=== PATIENT | male | born 1955 | race Caucasian/White ===

== ENCOUNTER 2023-10-05 05:50 | Day surgery (SDC) | payer MEDICARE, OTHER ==
[2023-10-01 14:10] VITALS: BP 123/74
[~2023-10-05] VITALS: Ht 188 cm; Wt 111.4 kg
[~2023-10-05 05:50] MED LIST: BAYER CHEWABLE81 MG PO; FISH OIL 1,2001 EACH PO; MIDAZOLAM HCL 5 MG/5 ML VIAL IV PRN; OMEPRAZOLE20 MG PO; VITAMIN C500 M1 PO; fentaNYL citrate 100 MCG/2 ML VIAL IV PRN
[2023-10-05 06:02] VITALS: BP 131/79
[2023-10-05] MEDS ORDERED: LACTATED RINGER'S 1,000 ML IV SCH (07:00)
[2023-10-05] MEDS ORDERED: LIDOCAINE HCL 1% 5 ML SDV INJ ONE (07:00)
[2023-10-05] MEDS ORDERED: IBLOOD GLUCOSE TEST STRIP 1 EA TEST VI PRN (07:00)
[2023-10-05] MEDS ORDERED: propofoL 200 MG/20 ML VIAL ONE ×2 (07:02→07:51)
[2023-10-05] MEDS ORDERED: LIDOCAINE HCL 2% 5 ML SDV ONE (07:02)
--- NOTE | 2023-10-05 07:57 | NUR ---
PT GONE FOR PROCEDURE. PROVIDED PRAYER.
--- NOTE | 2023-10-05 08:09 | NUR ---
10/05/23 0809 Charlene Brady 0801- PT ARRIVES TO PACU NONAROUSABLE TO STIMULI. RESP EVEN AND UNLABORED. OXYGEN SAT HIGH 90'S ON 2L VIA CO2 NC. PT'S HEART RATE IN THE 40'S TO 50'S IN A SINUS RHYTHM. 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 0807- PT AROUSABLE TO STIMULI. PT UPDATED THAT HIS PROCEDURE IS COMPLETE. PT FALLS BACK TO SLEEP. RESP EVEN AND UNLABORED.
[2023-10-05 08:28] VITALS: BP 129/82
--- NOTE | 2023-10-05 09:05 | OR ---
[facility] [address], [place] [address] Signed DATE OF OPERATION: 10/05/2023 SURGEON: Aurelia Alberto MD PREOPERATIVE DIAGNOSES: 1. Chronic constipation. 2. Intermittent rectal bleeding. 3. Questionable history of colon cancer in maternal grandmother. POSTOPERATIVE DIAGNOSES: 1. Minimal to moderate sigmoid diverticulosis. 2. Minimal to moderate internal hemorrhoids. PROCEDURE: Colonoscopy without biopsy. ESTIMATED BLOOD LOSS: None. INDICATIONS: Juan is a 67-year-old gentleman, asked to see me for a colonoscopy. He describes lifelong constipation. He frequently takes laxatives. He said milk of magnesia seems to work well. He sometimes has intermittent rectal bleeding associated with the constipation. His primary care provider asked him to use a little MiraLAX every day to keep his stool soft. He underwent a colonoscopy in 2008 at the age of 52 [address] Vance while living in [place], [place]. He said that was negative. He thinks it is possible his maternal grandmother had colon cancer, but he is not sure. In the office, I had given him a pamphlet on colonoscopy. We reviewed the nature of the test. There is risk including, but not limited to gas bloating, crampy abdominal pain, bleeding, perforation requiring surgery, and missed diagnosis. We also reviewed the written instructions for a bowel prep line by line. We had him take the bowel prep in the morning and repeat it in the afternoon. Consequently, he used an entire gallon of polyethylene glycol along with Dulcolax tablets. In addition, he has a history of atrial fibrillation, having undergone cardiac ablation. His heart rate runs in the 40s. He also has severe sleep apnea. In that regard, we asked for monitored anesthesia care with propofol infusion. He required preoperative blood work and an EKG. He understands an adult person has to take him home afterwards. He had expressed understanding and wished to proceed. DESCRIPTION OF PROCEDURE: Electronically Signed By: AURELIA ALBERTO MD 10/05/23 0905 PATIENT NAME: JUAN CAMACHO OPERATIVE REPORT DATE OF : 59 REPORT #: [id number] PHYSICIAN: AURELIA ALBERTO MD PCP: BARTOLO VANCE MD REPORT IS CONFIDENTIAL AND NOT TO BE RELEASED WITHOUT AUTHORIZATION [facility] [address], [place] [address] Signed Juan was taken into our endoscopy suite and placed in the left lateral decubitus position. He was given monitored anesthesia care with propofol infusion per our nurse residential mortgage manager. A digital rectal exam was performed. He had good sphincter tone. Really not much in the way of any external hemorrhoids. His prostate is indurated, the left is certainly more prominent than the right. No masses noted. The adult colonoscope was introduced and advanced all around into the cecum under direct visualization of the camera without difficulty. He had several areas of liquid stool that I was able to suction out quite readily. We could easily see the appendiceal orifice and the ileocecal valve. The scope was then slowly withdrawn. We took several pictures throughout for photodocumentation. He does have diverticula in the sigmoid colon. They were moderate in size, few in number and scattered about. There were no polyps. The rectum was unremarkable. Upon retroflexion of the scope, he does have minimal to moderate internal hemorrhoid columns. I am confident these do bleed once in a while with constipation. After this, the gas was suctioned out and the colonoscope removed. Juan tolerated the procedure quite well. RECOMMENDATIONS: Juan can follow up in 10 years for repeat screening colonoscopy. Aurelia Alberto MD ALB/MODL /[id number] cc: MD Aurelia Le MD Copies: BARTOLO VANCE MD, ANDREW L MD ~ Electronically Signed By: AURELIA ALBERTO MD 10/05/23 0905 PATIENT NAME: JUAN CAMACHO AURELIA OPERATIVE REPORT DATE OF : 59 REPORT #: [id number] PHYSICIAN: AURELIA ALBERTO MD PCP: BARTOLO VANCE MD REPORT IS CONFIDENTIAL AND NOT TO BE RELEASED WITHOUT AUTHORIZATION
== END 2023-10-05 08:35 | disposition home or self-care (01) ==
LOC: DS 05:50
PROVIDERS: ATTEND Colon & Rectal Surgery
PROC: 0DJD8ZZ Inspection of Lower Intestinal Tract, Via Natural or Artificial Opening Endoscopic (ICD-10-PCS; principal; 2023-10-05 07:30)
DX: K59.09 Other constipation (principal); K57.30 Diverticulosis of large intestine without perforation or abscess without bleeding; K64.8 Other hemorrhoids; I48.20 Chronic atrial fibrillation, unspecified; I25.10 Atherosclerotic heart disease of native coronary artery without angina pectoris; G47.33 Obstructive sleep apnea (adult) (pediatric); R73.03 Prediabetes; K62.5 Hemorrhage of anus and rectum; E66.9 Obesity, unspecified; G47.10 Hypersomnia, unspecified; Z68.32 Body mass index [BMI] 32.0-32.9, adult; Z79.899 Other long term (current) drug therapy
CPT/HCPCS: J2001; J2704; J7121